=== PATIENT | male | born 1960 | race Caucasian/White ===

== ENCOUNTER 2018-05-29 07:26 | Day surgery (SDC) | payer OTHER ==
[~2018-05-29] VITALS: Ht 172.7 cm; Wt 108.7 kg
[2018-05-29] VITALS (9 sets, daily range): BP systolic 105–131; BP diastolic 66–102
[~2018-05-29 07:26] MED LIST: LORA0.5T PO
[2018-05-29] MEDS ORDERED: diphenhydrAMINE 25mg capsule PO PRN (08:00)
[2018-05-29] MEDS ORDERED: sod bicarbonate 150mEq in D5W 1,150 ML IV ONE (08:00)
[2018-05-29] MEDS ORDERED: POTA-82 PO (08:03)
[2018-05-29] MEDS ORDERED: GABA100C PO (08:03)
[2018-05-29] MEDS ORDERED: METH10TA4 PO (08:03)
[2018-05-29] MEDS ORDERED: CARV25TA PO (08:03)
[2018-05-29] MEDS ORDERED: TADA10TA PO (08:03)
[2018-05-29] MEDS ORDERED: FURO-149 PO (08:03)
[2018-05-29] MEDS ORDERED: TESTOSTERONE CREAM TOP (08:03)
[2018-05-29 08:17] LABS: BASOPHILS % (AUTO) 0.4 % (0-1); EOSINOPHILS # (AUTO) 0.1 X10'3 (0-0.9); EOSINOPHILS % (AUTO) 2.7 % (0-6); HEMATOCRIT 50.1 % (42.0-52.0); HEMOGLOBIN 16.3 g/dl (14.0-17.9); LYMPHOCYTES # (AUTO) 1.3 X10'3 (1.1-4.8); LYMPHOCYTES % (AUTO) 23.6 % (21-51); MEAN CORPUSCULAR HEMOGLOBIN 31.2 PG (27.0-31.0); MEAN CORPUSCULAR HGB CONC 32.6 g/dL (33.0-36.5); MEAN CORPUSCULAR VOLUME 95.8 FL (78-98); MEAN PLATELET VOLUME 8.8 FL (7.4-10.4); MONOCYTES # (AUTO) 0.2 X10'3 (0-0.9); MONOCYTES % (AUTO) 3.8 % (2-12); NEUTROPHILS # (AUTO) 3.8 X10'3 (1.8-7.7); NEUTROPHILS % (AUTO) 69.5 % (42-75); PLATELET COUNT 163 X10'3 (140-440); RED BLOOD COUNT 5.23 X10'6 (4.70-6.10); RED CELL DISTRIBUTION WIDTH 14.6 % (11.5-14.5); WHITE BLOOD COUNT 5.4 X10'3 (4.5-11.0)
[2018-05-29 08:26] LABS: ANION GAP 10 (8-16); BLOOD UREA NITROGEN 23 MG/DL (7-18); CALCIUM 8.9 MG/DL (8.5-10.1); CHLORIDE 105 MMOL/L (99-107); GLUCOSE 94 MG/DL (70-104); MAGNESIUM 2.1 MG/DL (1.5-2.4); POTASSIUM 3.9 MMOL/L (3.5-5.1); SODIUM 143 MMOL/L (135-145); TOTAL CARBON DIOXIDE 27.6 MMOL/L (24-32); eGFR 77 ML/MIN
[2018-05-29] MEDS ORDERED: FLU VACC QUAD 2018(5 YR UP)/PF 60 MCG/0.5 ML SYRINGE IM ONE (09:00)
[2018-05-29 09:01] LABS: INR 1.1 INR; PROTHROMBIN TIME 11.2 SECONDS (9.0-12.0)
[2018-05-29] MEDS ORDERED: midazolam 2 mg/2 ml injection ONE (10:03)
[2018-05-29] MEDS ORDERED: iohexol 350 MG/ML 50ML vial IV ONE (10:04)
[2018-05-29] MEDS ORDERED: fentaNYL/PF 50MCG/1 ML 2ML syringe ONE (10:04)
[2018-05-29] MEDS ORDERED: iohexol 350MG/ML 100ml bottle IV ONE (10:04)
[2018-05-29] MEDS ORDERED: LIDOcaine 1% (10mg/ml)w/preservative injection 20ml MDV ONE (10:04)
[2018-05-29] MEDS ORDERED: furosemide 40mg/4ml inj ONE (10:54)
--- NOTE | 2018-05-29 13:31 | NUR ---
Dr. Landrum wanted patient to go home on a dobutamine gtt this afternoon, case management stated nothing was open and they could not get an infusion nurse to set it up, Dr. landrum was notified that it could not be done today, discharge is still pending at 1500 today, Dr. landrum stated to have him follow up with his office this week and they will set him up with a dobutamine drip. Telephone orders verified.
[2018-05-29] MEDS ORDERED: gabapentin 100mg capsule PO SCH (16:00)
[2018-05-29] MEDS ORDERED: furosemide 40mg tablet PO SCH (20:00)
[2018-05-29] MEDS ORDERED: methylphenidate 5mg tablet PO SCH (20:00)
[2018-05-29] MEDS ORDERED: lisinopril 2.5mg tablet PO SCH (20:00)
[2018-05-29] MEDS ORDERED: carVEDilol 12.5mg tablet PO SCH (20:00)
[2018-05-29] MEDS ORDERED: potassium Cl 20 mEq SR tablet PO SCH (20:00)
== END 2018-05-29 15:00 | disposition home or self-care (01) ==
LOC: SSTAY O 07:26
PROVIDERS: ATTEND Internal Medicine Cardiovascular Disease
DX: I25.10 Atherosclerotic heart disease of native coronary artery without angina pectoris (principal); I42.0 Dilated cardiomyopathy; I10 Essential (primary) hypertension; Z79.899 Other long term (current) drug therapy; Z98.890 Other specified postprocedural states; Z88.8 Allergy status to other drugs, medicaments and biological substances
CPT/HCPCS: 36415; 80048; 83735; 85025; 85610; 93005; 93458; 99152; A6257; J1644; J1940; J2250; J3010; Q0163; Q2037; Q9967; A4620; C1760; C1769; C1894; J2001

== ENCOUNTER → 2018-05-31 | Day surgery (SDC) | payer OTHER ==
[~2018-05-31] MED LIST changes: +CAPT12.53 PO; +CARV-50 PO; +CARV25TA PO; +FURO-149 PO; +FURO40TA4 PO; +GABA100C PO; -LORA0.5T PO; +METH10TA4 PO; +POTA-82 PO; +POTA20PA40 PO; +TADA10TA PO; +TESTOSTERONE CREAM TOP
== END | disposition home or self-care (01) ==
LOC: SSTAY O 10:58
PROVIDERS: ATTEND Internal Medicine Cardiovascular Disease
PROC: 05HY33Z Insertion of Infusion Device into Upper Vein, Percutaneous Approach (ICD-10-PCS; principal; 2018-05-31)
DX: I50.9 Heart failure, unspecified (principal); I42.9 Cardiomyopathy, unspecified
CPT/HCPCS: 36573; 76937

== ENCOUNTER 2018-06-09 09:32 | Day surgery (SDC) | payer OTHER ==
[~2018-06-09 09:32] MED LIST changes: -CAPT12.53 PO; -CARV-50 PO; -FURO40TA4 PO; -POTA20PA40 PO
[2018-06-09] MEDS ORDERED: normal saline 1000ml 1,000 ML IV SCH ×2 (09:55→12:50)
[2018-06-09] MEDS ORDERED: diphenhydrAMINE 25mg capsule PO PRN (10:10)
[2018-06-09] MEDS ORDERED: sod bicarbonate 150mEq in D5W 1,150 ML IV ONE (10:10)
[2018-06-09] MEDS ORDERED: POTA20PA40 PO (10:24)
[2018-06-09] MEDS ORDERED: FURO40TA4 PO (10:24)
[2018-06-09] MEDS ORDERED: CARV-50 PO (10:24)
[2018-06-09] MEDS ORDERED: CAPT12.53 PO (10:24)
[2018-06-09] MEDS ORDERED: lidocaine 1%/epinephrine 1:100,000 injection 50ml vial ONE (10:39)
[2018-06-09] MEDS ORDERED: fentaNYL/PF 50MCG/1 ML 2ML syringe ONE ×2 (10:39→11:26)
[2018-06-09] MEDS ORDERED: midazolam 2 mg/2 ml injection ONE ×4 (10:39→11:50)
[2018-06-09] MEDS ORDERED: vancomycin/NS 1 GM ADD-VANTAGE 250 ML IV ONE (10:45)
[2018-06-09] MEDS ORDERED: cefazolin/dext.iso 2gm/50ml 50 ML IV ONE (10:58)
[2018-06-09 11:08] LABS: BASOPHILS % (AUTO) 0.9 % (0-1); EOSINOPHILS # (AUTO) 0.2 X10'3 (0-0.9); EOSINOPHILS % (AUTO) 2.8 % (0-6); HEMATOCRIT 52.2 % (42.0-52.0); HEMOGLOBIN 17.3 g/dl (14.0-17.9); LYMPHOCYTES # (AUTO) 1.4 X10'3 (1.1-4.8); LYMPHOCYTES % (AUTO) 24.8 % (21-51); MEAN CORPUSCULAR HEMOGLOBIN 30.9 PG (27.0-31.0); MEAN CORPUSCULAR HGB CONC 33.2 g/dL (33.0-36.5); MEAN CORPUSCULAR VOLUME 93.1 FL (78-98); MEAN PLATELET VOLUME 7.9 FL (7.4-10.4); MONOCYTES # (AUTO) 0.4 X10'3 (0-0.9); MONOCYTES % (AUTO) 7.7 % (2-12); NEUTROPHILS # (AUTO) 3.5 X10'3 (1.8-7.7); NEUTROPHILS % (AUTO) 63.8 % (42-75); PLATELET COUNT 179 X10'3 (140-440); RED CELL DISTRIBUTION WIDTH 14.3 % (11.5-14.5); WHITE BLOOD COUNT 5.5 X10'3 (4.5-11.0)
[2018-06-09 11:13] VITALS: BP 107/84
[2018-06-09 11:14] LABS: PROTHROMBIN TIME 10.5 SECONDS (9.0-12.0)
[2018-06-09 11:15] LABS: ALBUMIN 3.8 G/DL (3.4-5.0); ANION GAP 6 (8-16); BLOOD UREA NITROGEN 24 MG/DL (7-18); CALCIUM 8.9 MG/DL (8.5-10.1); CHLORIDE 102 MMOL/L (99-107); CREATININE 0.96 MG/DL (0.60-1.10); GLUCOSE 98 MG/DL (70-104); SODIUM 136 MMOL/L (135-145); TOTAL CARBON DIOXIDE 28.4 MMOL/L (24-32); eGFR 81 ML/MIN
[2018-06-09 11:16] LABS: POTASSIUM 5.1 MMOL/L (3.5-5.1)
[2018-06-09] MEDS ORDERED: vancomycin 1,000mg inj ONE (11:45)
[2018-06-09 12:24] VITALS: BP 150/73
[2018-06-09 12:45] VITALS: BP 148/77
[2018-06-09 13:00] VITALS: BP 124/80
[2018-06-09 13:15] VITALS: BP 117/79
== END 2018-06-09 14:27 | disposition home or self-care (01) ==
LOC: SSTAY O 09:32
PROVIDERS: ATTEND Internal Medicine Cardiovascular Disease
DX: I42.0 Dilated cardiomyopathy (principal); I10 Essential (primary) hypertension; Z98.890 Other specified postprocedural states; Z72.89 Other problems related to lifestyle; Z79.899 Other long term (current) drug therapy
CPT/HCPCS: 33249; 36415; 71046; 80048; 83735; 85025; 85610; 99152; 99153; C1722; C1777; J0690; J2250; J3010; J3370; J3490; J7030; A4565; A4620; C1894

== ENCOUNTER 2018-07-06 08:14 | Day surgery (SDC) | payer OTHER ==
[~2018-07-06] VITALS: Ht 172.7 cm; Wt 104.1 kg
[~2018-07-06 08:14] MED LIST changes: +CAPT12.53 PO; +CARV-50 PO; -CARV25TA PO; -FURO-149 PO; +FURO40TA4 PO; -POTA-82 PO; +POTA20PA40 PO; -TADA10TA PO; -TESTOSTERONE CREAM TOP
[2018-07-06] MEDS ORDERED: normal saline 1000ml 1,000 ML IV SCH ×2 (09:20→10:22)
[2018-07-06 09:24] LABS: BASOPHILS % (AUTO) 0.9 % (0-1); EOSINOPHILS # (AUTO) 0.2 X10'3 (0-0.9); EOSINOPHILS % (AUTO) 3.5 % (0-6); HEMATOCRIT 45.9 % (42.0-52.0); HEMOGLOBIN 15.4 g/dl (14.0-17.9); LYMPHOCYTES # (AUTO) 1.4 X10'3 (1.1-4.8); LYMPHOCYTES % (AUTO) 26.1 % (21-51); MEAN CORPUSCULAR HEMOGLOBIN 30.1 PG (27.0-31.0); MEAN CORPUSCULAR HGB CONC 33.5 g/dL (33.0-36.5); MEAN CORPUSCULAR VOLUME 89.9 FL (78-98); MEAN PLATELET VOLUME 7.7 FL (7.4-10.4); MONOCYTES # (AUTO) 0.4 X10'3 (0-0.9); NEUTROPHILS # (AUTO) 3.2 X10'3 (1.8-7.7); NEUTROPHILS % (AUTO) 61.5 % (42-75); PLATELET COUNT 160 X10'3 (140-440); RED CELL DISTRIBUTION WIDTH 13.2 % (11.5-14.5); WHITE BLOOD COUNT 5.2 X10'3 (4.5-11.0)
[2018-07-06 09:32] LABS: ALBUMIN 3.5 G/DL (3.4-5.0); ANION GAP 8 (8-16); BLOOD UREA NITROGEN 18 MG/DL (7-18); BUN/CREATININE RATIO 20.7 (5.4-32.0); CALCIUM 8.8 MG/DL (8.5-10.1); CHLORIDE 104 MMOL/L (99-107); CREATININE 0.87 MG/DL (0.60-1.10); GLUCOSE 93 MG/DL (70-104); POTASSIUM 4.4 MMOL/L (3.5-5.1); SODIUM 140 MMOL/L (135-145); eGFR 90 ML/MIN
[2018-07-06 09:51] VITALS: BP 96/64
[2018-07-06] MEDS ORDERED: heparin 1,000 units/ml 10ml inj ICATH ONE ×2 (10:25→10:50)
[2018-07-06] MEDS ORDERED: fentaNYL/PF 50MCG/1 ML 2ML syringe IV PRN (10:25)
[2018-07-06] MEDS ORDERED: midazolam 2 mg/2 ml injection IV PRN (10:25)
[2018-07-06] MEDS ORDERED: LIDOcaine 1%/PF 5ML 10 MG/ML VIAL SQ ONE (10:25)
[2018-07-06] MEDS ORDERED: midazolam 2 mg/2 ml injection ONE (10:50)
[2018-07-06] MEDS ORDERED: fentaNYL/PF 50MCG/1 ML 2ML syringe ONE (10:51)
[2018-07-06] MEDS ORDERED: LIDOcaine 1%/PF 5ML 10 MG/ML VIAL ONE (10:52)
[2018-07-06 11:49] VITALS: BP 116/91
[2018-07-06 12:00] VITALS: BP 110/89
[2018-07-06 12:15] VITALS: BP 109/74
[2018-07-06 13:40] VITALS: BP 116/91
== END 2018-07-06 12:55 | disposition home or self-care (01) ==
LOC: SSTAY O 08:14
PROVIDERS: ATTEND Radiology Diagnostic Radiology
DX: I42.0 Dilated cardiomyopathy (principal); I10 Essential (primary) hypertension; Z79.899 Other long term (current) drug therapy; Z98.890 Other specified postprocedural states; Z88.8 Allergy status to other drugs, medicaments and biological substances
CPT/HCPCS: 36415; 36558; 76937; 77001; 80048; 85025; J2001; J2250; J3010; J7030; 99152; 99153; A9270; C1751; C1894; J1644

== ENCOUNTER 2018-10-18 08:45 | Emergency (ER) | payer OTHER ==
[~2018-10-18] VITALS: Ht 175.3 cm; Wt 99.1 kg
--- NOTE | 2018-10-18 09:22 | NUR ---
picc nurse advises that she will be able to come down in 30-45 minutes.
[2018-10-18 11:31] VITALS: BP 106/69
== END 2018-10-18 12:10 | disposition home or self-care (01) ==
LOC: ER 08:45
DX: T82.514A Breakdown (mechanical) of infusion catheter, initial encounter (principal); T82.534A Leakage of infusion catheter, initial encounter; Z79.899 Other long term (current) drug therapy; Y83.8 Other surgical procedures as the cause of abnormal reaction of the patient, or of later complication, without mention of misadventure at the time of the procedure; Y92.89 Other specified places as the place of occurrence of the external cause
CPT/HCPCS: 99285

== ENCOUNTER 2018-10-19 07:05 | Emergency (ER) | payer OTHER ==
[~2018-10-19] VITALS: Ht 175.3 cm; Wt 102.0 kg
--- NOTE | 2018-10-19 08:06 | NUR ---
patient reconnected to his heart medication pump, per dr Yuan
[2018-10-19 10:25] VITALS: BP 106/75
--- NOTE | 2018-10-19 10:28 | NUR ---
reported off to Ziggy QIU, taking over
== END 2018-10-19 11:34 | disposition home or self-care (01) ==
LOC: ER 07:06
DX: T82.898A Other specified complication of vascular prosthetic devices, implants and grafts, initial encounter (principal); Y92.89 Other specified places as the place of occurrence of the external cause
CPT/HCPCS: 99283

== ENCOUNTER 2019-02-05 12:00 | Inpatient (IN) | payer OTHER ==
[2019-02-05] VITALS (8 sets, daily range): BP systolic 60–94; BP diastolic 28–60
[~2019-02-05] VITALS: Ht 172.7 cm; Wt 101.0 kg
--- NOTE | 2019-02-05 12:15 | NUR ---
pt bib ems for weakness ,lightheadness low bp .dr quinonez aware of pt condtion as per barbara kaur.
--- NOTE | 2019-02-05 12:39 | NUR ---
pt pacemaker interogation done waiting for fax.celso rodrigez came by to see the pt , at bedside,pt stef any cp or sob.[t co generalized weakness and tirdness.pt bp 64/41.
[2019-02-05 12:43] LABS: BASOPHILS % (AUTO) 0.2 % (0-1); EOSINOPHILS # (AUTO) 0.1 X10'3 (0-0.9); EOSINOPHILS % (AUTO) 0.8 % (0-6); HEMATOCRIT 46.3 % (42.0-52.0); HEMOGLOBIN 16.2 g/dl (14.0-17.9); LYMPHOCYTES # (AUTO) 1.4 X10'3 (1.1-4.8); LYMPHOCYTES % (AUTO) 14.8 % (21-51); MEAN CORPUSCULAR HEMOGLOBIN 31.7 PG (27.0-31.0); MEAN CORPUSCULAR VOLUME 90.7 FL (78-98); MEAN PLATELET VOLUME 7.6 FL (7.4-10.4); MONOCYTES # (AUTO) 0.6 X10'3 (0-0.9); MONOCYTES % (AUTO) 5.9 % (2-12); NEUTROPHILS # (AUTO) 7.4 X10'3 (1.8-7.7); NEUTROPHILS % (AUTO) 78.3 % (42-75); PLATELET COUNT 224 X10'3 (140-440); RED CELL DISTRIBUTION WIDTH 12.6 % (11.5-14.5); WHITE BLOOD COUNT 9.4 X10'3 (4.5-11.0)
--- NOTE | 2019-02-05 12:49 | NUR ---
pt stated that he has not slept since ,pt has lost weight as pt was on diuretic.pt light lights turn low danielle that pt can relax.
--- NOTE | 2019-02-05 12:56 | NUR ---
ASSISGNED NURSE BACK FROM LUNCH BREAK ,REPORT GIVEN.
[2019-02-05 12:57] LABS: PARTIAL THROMBOPLASTIN TIME 28 SECONDS (22-32)
[2019-02-05 12:59] LABS: ALANINE AMINOTRANSFERASE 20 U/L (12-78); ALBUMIN 4.2 G/DL (3.4-5.0); ALBUMIN/GLOBULIN RATIO 1.1 (1.1-1.5); ALKALINE PHOSPHATASE 83 IU/L (46-116); ANION GAP 12 (8-16); ASPARTATE AMINO TRANSFERASE 16 U/L (10-37); BLOOD UREA NITROGEN 79 MG/DL (7-18); CALCIUM 9.9 MG/DL (8.5-10.1); CHLORIDE 86 MMOL/L (99-107); CREATININE 2.55 MG/DL (0.60-1.10); GLUCOSE 141 MG/DL (70-104); POTASSIUM 3.2 MMOL/L (3.5-5.1); SODIUM 129 MMOL/L (135-145); TOTAL CARBON DIOXIDE 31.5 MMOL/L (24-32); TOTAL PROTEIN 7.9 G/DL (6.4-8.2); eGFR 26 ML/MIN
[2019-02-05] MEDS ORDERED: ondansetron 4mg rapidly disintigrating tab PO ONE (13:15)
[2019-02-05] MEDS ORDERED: normal saline 1000ML IV soln IVB ONE (14:15)
[2019-02-05] MEDS ORDERED: ZAR2.5T PO (15:08)
[2019-02-05] MEDS ORDERED: CARV6.253 PO (15:20)
[2019-02-05] MEDS ORDERED: SACU1TAB PO (15:20)
[2019-02-05] MEDS ORDERED: SPIR25TA5 PO (15:20)
[2019-02-05] MEDS ORDERED: BUME2TAB7 PO (15:20)
[2019-02-05] MEDS ORDERED: sodium phosphate inj. 30 MMOL in dextrose 5%-water 250 ML IV PRN (15:40)
[2019-02-05] MEDS ORDERED: morphine 4 MG/ML inj SYRINge IV PRN (15:40)
[2019-02-05] MEDS ORDERED: magnesium 2GM in 50ml NS 50 ML IV PRN (15:40)
[2019-02-05] MEDS ORDERED: magnesium 4gm in 100ml NS 100 ML IV PRN (15:40)
[2019-02-05] MEDS ORDERED: magnesium Cl slow-release 64mg tablet PO PRN (15:40)
[2019-02-05] MEDS ORDERED: Neutra Phos packet PO PRN (15:40)
[2019-02-05] MEDS ORDERED: sodium phosphate inj. 15 MMOL in dextrose 5%-water 150 ML IV PRN (15:40)
[2019-02-05] MEDS ORDERED: morphine 2 MG/ML inj. syringe IV PRN (15:40)
[2019-02-05] MEDS ORDERED: acetaminophen 325mg tablet PO PRN (15:40)
[2019-02-05] MEDS ORDERED: bisacodyl 10mg suppository rectal RC PRN (15:40)
[2019-02-05] MEDS: normal saline 1000ml 1,000 ML IV SCH (16:19)
[2019-02-05] MEDS: midodrine tablet 2.5 MG TABLET PO SCH ×2 (16:20→23:51)
[2019-02-05] MEDS: heparin, porcine 5000 units/ml vial SQ SCH (16:20)
[2019-02-05] MEDS: milrinone (Primacor) 20mg/D5W 100 ML IV SCH ×2 (16:34→20:53)
[2019-02-05] MEDS: acetaminophen 325mg tablet PO PRN (16:38)
--- NOTE | 2019-02-05 19:25 | NUR ---
DISTAL END OF [facility] GROSHONG TUBING APPEARS TO HAVE SMALL LEAK AND PER PATIENT HAS ALREADY BEEN REPAIRED ONCE. MILRINONE GTT CHANGED TO RIGHT HAND PIV ABIGAIL RN AWARE. [facility] CALLED PER 'S REQUEST PATIENT'S INFUSIONS COME FROM [facility] AND RN FROM [facility] REPAIRED LINE ONCE ALREADY: NO ANSWER, NO MESSAGE LEFT. INFORMED
--- NOTE | 2019-02-05 19:31 | NUR ---
PT HAS GROSHONG LINE IN RT CHEST WITH PRIMACOR RUNNING, GROSHONG LINE STARTED LEAKING ABOVE THE IV TUBING CONNECTION. PRIMACOR CHANGED TO 18G PIV IN RT HAND TEMPORARILY. NOTIFIED ANKIT TERRELL.
[2019-02-05] MEDS: docusate sod 100mg capsule PO SCH (20:00)
--- NOTE | 2019-02-05 20:20 | NUR ---
I received pt via gurney from ER, pt is alert oriented, placed on monitor, assessment complete, sbp 62 call placed to Alberto PHAM 200ml of 5% albumin ordered and given with little increase in bp, spoke to Alberto PHAM again orders to give 500 ml ns bolus ordered and administrated. sbp remains in the 60 spoke to alberto Balderas Midodrine 5mg now ordered and administered sbp greater then 80. new orders received to not titrate the primacor, and sbp ok in the 80's as long as pt is not symptomatic for hypotension
[2019-02-05] MEDS ORDERED: albumin (human) 25% 100 ML IV solution IV ONE (20:40)
[2019-02-05] MEDS ORDERED: albumin (human) 25% 100ml IV 200 ML IV ONE (20:42)
[2019-02-05] MEDS ORDERED: midodrine tablet 2.5 MG TABLET PO STA (21:02)
[2019-02-05] MEDS: famotidine 20mg tablet PO SCH (23:51)
[2019-02-06] VITALS (18 sets, daily range): BP systolic 82–169; BP diastolic 43–94
[2019-02-06 04:46] LABS: ALANINE AMINOTRANSFERASE 17 U/L (12-78); ALBUMIN 4.2 G/DL (3.4-5.0); ALBUMIN/GLOBULIN RATIO 1.6 (1.1-1.5); ALKALINE PHOSPHATASE 63 IU/L (46-116); ANION GAP 10 (8-16); ASPARTATE AMINO TRANSFERASE 14 U/L (10-37); BILIRUBIN,TOTAL 1.2 MG/DL (0.1-1.0); BLOOD UREA NITROGEN 81 MG/DL (7-18); CHLORIDE 90 MMOL/L (99-107); CREATININE 2.61 MG/DL (0.60-1.10); GLUCOSE 101 MG/DL (70-104); MAGNESIUM 2.5 MG/DL (1.5-2.4); PHOSPHORUS 5.7 MG/DL (2.3-4.5); SODIUM 129 MMOL/L (135-145); TOTAL CARBON DIOXIDE 28.6 MMOL/L (24-32); TOTAL PROTEIN 6.9 G/DL (6.4-8.2); TROPONIN I < 0.04 NG/ML (0.0-0.05); eGFR 25 ML/MIN
[2019-02-06 04:48] LABS: BASOPHILS % (AUTO) 0.2 % (0-1); EOSINOPHILS # (AUTO) 0.1 X10'3 (0-0.9); EOSINOPHILS % (AUTO) 1.4 % (0-6); HEMATOCRIT 37.6 % (42.0-52.0); HEMOGLOBIN 13.4 g/dl (14.0-17.9); LYMPHOCYTES # (AUTO) 1.5 X10'3 (1.1-4.8); MEAN CORPUSCULAR HEMOGLOBIN 32.1 PG (27.0-31.0); MEAN CORPUSCULAR HGB CONC 35.5 g/dL (33.0-36.5); MEAN CORPUSCULAR VOLUME 90.4 FL (78-98); MEAN PLATELET VOLUME 7.7 FL (7.4-10.4); MONOCYTES # (AUTO) 0.5 X10'3 (0-0.9); MONOCYTES % (AUTO) 7.8 % (2-12); NEUTROPHILS # (AUTO) 4.7 X10'3 (1.8-7.7); NEUTROPHILS % (AUTO) 68.6 % (42-75); PLATELET COUNT 169 X10'3 (140-440); RED BLOOD COUNT 4.16 X10'6 (4.70-6.10); RED CELL DISTRIBUTION WIDTH 12.7 % (11.5-14.5); WHITE BLOOD COUNT 6.8 X10'3 (4.5-11.0)
[2019-02-06 04:50] LABS: POTASSIUM 2.8 MMOL/L (3.5-5.1)
[2019-02-06] MEDS: normal saline 1000ml 1,000 ML IV SCH (04:57)
[2019-02-06] MEDS: potassium Cl 20 mEq SR tablet PO PRN ×5 (05:05→20:45)
--- NOTE | 2019-02-06 06:22 | NUR ---
report given to rec rn plan of care reviewed
[2019-02-06] MEDS: milrinone (Primacor) 20mg/D5W 100 ML IV SCH ×3 (06:50→16:53)
[2019-02-06] MEDS: acetaminophen 325mg tablet PO PRN (06:52)
[2019-02-06] MEDS: famotidine 20mg tablet PO SCH ×2 (07:23→20:44)
[2019-02-06] MEDS: midodrine tablet 2.5 MG TABLET PO SCH ×2 (07:23→15:32)
[2019-02-06] MEDS: heparin, porcine 5000 units/ml vial SQ SCH ×3 (07:24→15:31)
[2019-02-06] MEDS: docusate sod 100mg capsule PO SCH ×2 (07:43→20:44)
[2019-02-06] MEDS: ondansetron/PF 4mg/2ml inj IV PRN (09:38)
[2019-02-06] MEDS: HYDROcodone/acetaminophen 10/325mg tab PO PRN (11:23)
--- NOTE | 2019-02-06 13:11 | NUR ---
Patient transferred to ACCE unit bed 307 with all belongings, including red cell phone. Report called to RN. Transferred via w/c with [facility]VTel running to [facility]. Potassium replacement completed prior to transfer. Recheck lab ordered for 1530
--- NOTE | 2019-02-06 18:16 | NUR ---
Problems reprioritized. Patient report given, questions answered & plan of care reviewed with LAZARUS Friedman.
[2019-02-06] MEDS: lactobacillus rhamnosus 10,000 MMU CELLS/CAPSULE PO SCH (20:44)
[2019-02-07] MEDS: midodrine tablet 2.5 MG TABLET PO SCH ×2 (00:46→09:14)
[2019-02-07] MEDS: heparin, porcine 5000 units/ml vial SQ SCH ×2 (00:46→09:13)
[2019-02-07] MEDS: milrinone (Primacor) 20mg/D5W 100 ML IV SCH ×2 (00:57→09:19)
[2019-02-07 02:00] VITALS: BP 143/67
[2019-02-07 02:36] LABS: BASOPHILS % (AUTO) 0.4 % (0-1); EOSINOPHILS # (AUTO) 0.3 X10'3 (0-0.9); EOSINOPHILS % (AUTO) 5.4 % (0-6); HEMATOCRIT 41.5 % (42.0-52.0); HEMOGLOBIN 14.5 g/dl (14.0-17.9); LYMPHOCYTES # (AUTO) 1.9 X10'3 (1.1-4.8); LYMPHOCYTES % (AUTO) 31.9 % (21-51); MEAN CORPUSCULAR VOLUME 91.4 FL (78-98); MEAN PLATELET VOLUME 7.7 FL (7.4-10.4); MONOCYTES # (AUTO) 0.5 X10'3 (0-0.9); NEUTROPHILS # (AUTO) 3.3 X10'3 (1.8-7.7); NEUTROPHILS % (AUTO) 54.3 % (42-75); PLATELET COUNT 177 X10'3 (140-440); RED BLOOD COUNT 4.54 X10'6 (4.70-6.10); RED CELL DISTRIBUTION WIDTH 12.7 % (11.5-14.5)
[2019-02-07 02:41] LABS: ALANINE AMINOTRANSFERASE 20 U/L (12-78); ALBUMIN/GLOBULIN RATIO 1.2 (1.1-1.5); ALKALINE PHOSPHATASE 70 IU/L (46-116); ANION GAP 7 (8-16); ASPARTATE AMINO TRANSFERASE 17 U/L (10-37); BILIRUBIN,TOTAL 0.9 MG/DL (0.1-1.0); BLOOD UREA NITROGEN 57 MG/DL (7-18); BUN/CREATININE RATIO 37.5 (5.4-32.0); CALCIUM 8.7 MG/DL (8.5-10.1); CHLORIDE 96 MMOL/L (99-107); CREATININE 1.52 MG/DL (0.60-1.10); GLUCOSE 92 MG/DL (70-104); MAGNESIUM 2.4 MG/DL (1.5-2.4); POTASSIUM 3.6 MMOL/L (3.5-5.1); SODIUM 132 MMOL/L (135-145); TOTAL CARBON DIOXIDE 28.7 MMOL/L (24-32); TOTAL PROTEIN 7.3 G/DL (6.4-8.2); eGFR 48 ML/MIN
[2019-02-07] MEDS: HYDROcodone/acetaminophen 10/325mg tab PO PRN (05:28)
[2019-02-07 06:00] VITALS: BP 113/80
[2019-02-07] MEDS: ondansetron/PF 4mg/2ml inj IV PRN (09:12)
[2019-02-07] MEDS: lactobacillus rhamnosus 10,000 MMU CELLS/CAPSULE PO SCH (09:13)
[2019-02-07] MEDS: famotidine 20mg tablet PO SCH (09:13)
[2019-02-07] MEDS: docusate sod 100mg capsule PO SCH (09:14)
[2019-02-07 11:00] VITALS: BP 107/78
--- NOTE | 2019-02-07 13:00 | NUR ---
Student documentation: I have reviewed and agree with all interventions, assessments performed and documented by MARISOL Westbrook.
--- NOTE | 2019-02-07 14:30 | NUR ---
pt. discharged from facility at 1402. pt. was wheeled down to private vehicle by staff accompanied by . pt. signed and understood all paperwork. pt. IV was d/c intact. pt. had no new meds to call in. pt. left with all belongings.
[2019-02-08] MEDS ORDERED: VANCOMYCIN LEVEL IV ONE (21:30)
== END 2019-02-07 14:05 | disposition home or self-care (01) | DRG 314 ==
LOC: ER 12:00 → ED HOLD 15:36 → CMPBEDREQ 19:44 → ICU 2S 20:58 → MED 3N 02-06 14:50
PROVIDERS: ADMIT Internal Medicine Critical Care Medicine; ATTEND Internal Medicine Critical Care Medicine
PROC: 0JWT3XZ Revision of Tunneled Vascular Access Device in Trunk Subcutaneous Tissue and Fascia, Percutaneous Approach (ICD-10-PCS; principal; 2019-02-06)
DX: T82.514A Breakdown (mechanical) of infusion catheter, initial encounter (principal); R57.0 Cardiogenic shock; I42.0 Dilated cardiomyopathy; N17.9 Acute kidney failure, unspecified; I13.0 Hypertensive heart and chronic kidney disease with heart failure and stage 1 through stage 4 chronic kidney disease, or unspecified chronic kidney disease; E87.3 Alkalosis; E86.0 Dehydration; N18.9 Chronic kidney disease, unspecified; I50.9 Heart failure, unspecified; Z79.899 Other long term (current) drug therapy; Y92.89 Other specified places as the place of occurrence of the external cause
CPT/HCPCS: 36415; 71045; 80053; 83605; 83735; 84100; 84132; 84145; 84443; 84484; 85025; 85610; 85730; 87040; 87081; 93005; 96360; 97161; 97530; 99285; G0378; J1644; J2260; J2405; J3370; P9047

== ENCOUNTER 2019-03-09 15:17 | Emergency (ER) | payer OTHER ==
[~2019-03-09] VITALS: Ht 175.3 cm; Wt 105.5 kg
[~2019-03-09 15:17] MED LIST changes: +BUME2TAB7 PO; -CAPT12.53 PO; -CARV-50 PO; +CARV6.253 PO; -FURO40TA4 PO; -GABA100C PO; -METH10TA4 PO; +SACU1TAB PO; +SPIR25TA5 PO
[2019-03-09 16:08] LABS: BASOPHILS % (AUTO) 0.5 % (0-1); EOSINOPHILS % (AUTO) 0.7 % (0-6); HEMATOCRIT 42.1 % (42.0-52.0); HEMOGLOBIN 14.7 g/dl (14.0-17.9); LYMPHOCYTES # (AUTO) 1.5 X10'3 (1.1-4.8); LYMPHOCYTES % (AUTO) 22.1 % (21-51); MEAN CORPUSCULAR HEMOGLOBIN 32.4 PG (27.0-31.0); MEAN CORPUSCULAR HGB CONC 34.9 g/dL (33.0-36.5); MEAN CORPUSCULAR VOLUME 92.7 FL (78-98); MEAN PLATELET VOLUME 7.2 FL (7.4-10.4); MONOCYTES # (AUTO) 0.3 X10'3 (0-0.9); NEUTROPHILS # (AUTO) 4.7 X10'3 (1.8-7.7); NEUTROPHILS % (AUTO) 71.7 % (42-75); PLATELET COUNT 209 X10'3 (140-440); RED BLOOD COUNT 4.54 X10'6 (4.70-6.10); RED CELL DISTRIBUTION WIDTH 13.2 % (11.5-14.5); WHITE BLOOD COUNT 6.6 X10'3 (4.5-11.0)
[2019-03-09 16:25] LABS: ALANINE AMINOTRANSFERASE 26 U/L (12-78); ALBUMIN 4.3 G/DL (3.4-5.0); ALBUMIN/GLOBULIN RATIO 1.2 (1.1-1.5); ALKALINE PHOSPHATASE 78 IU/L (46-116); ANION GAP 10 (8-16); ASPARTATE AMINO TRANSFERASE 21 U/L (10-37); BILIRUBIN,TOTAL 0.4 MG/DL (0.1-1.0); BLOOD UREA NITROGEN 26 MG/DL (7-18); BUN/CREATININE RATIO 20.3 (5.4-32.0); CHLORIDE 98 MMOL/L (99-107); CREATININE 1.28 MG/DL (0.60-1.10); GLUCOSE 97 MG/DL (70-104); POTASSIUM 3.4 MMOL/L (3.5-5.1); SODIUM 139 MMOL/L (135-145); TOTAL CARBON DIOXIDE 30.6 MMOL/L (24-32); TOTAL PROTEIN 7.8 G/DL (6.4-8.2); eGFR 58 ML/MIN
[2019-03-09 19:40] VITALS: BP 114/69
== END 2019-03-09 19:42 | disposition home or self-care (01) ==
LOC: ER 15:18
DX: R07.89 Other chest pain (principal); N18.9 Chronic kidney disease, unspecified; Z79.899 Other long term (current) drug therapy
CPT/HCPCS: 36415; 71045; 80053; 84484; 85025; 93005; 99284

== ENCOUNTER 2019-04-10 11:05 | Day surgery (SDC) | payer OTHER ==
[~2019-04-10] VITALS: Ht 175.3 cm; Wt 110.6 kg
[2019-04-10] MEDS ORDERED: LIDOcaine 1% 30ml preserv. free vial SQ STA (11:24)
[2019-04-10 11:30] VITALS: BP 109/71
--- NOTE | 2019-04-10 12:00 | NUR ---
Pt states he is here for a 7-9 day picc line needed for milrinone infusion due to infected groshong catheter. Contacted [facility] pharmacist Chris to confirm medication is ok to give via midline per their policy, he states he is comfortable with medication going through midline. Discussed with Dr. Erlin Rivera the information and he states ok to place midline for temporary infusion instead of PICC line. DAYNA QIU
[2019-04-10] MEDS ORDERED: DOBU250I2 IV (12:05)
[2019-04-10 12:10] LABS: BASOPHILS % (AUTO) 0.6 % (0-1); EOSINOPHILS # (AUTO) 0.3 X10'3 (0-0.9); EOSINOPHILS % (AUTO) 4.9 % (0-6); HEMATOCRIT 40.1 % (42.0-52.0); HEMOGLOBIN 13.8 g/dl (14.0-17.9); LYMPHOCYTES # (AUTO) 1.5 X10'3 (1.1-4.8); LYMPHOCYTES % (AUTO) 23.9 % (21-51); MEAN CORPUSCULAR HEMOGLOBIN 32.3 PG (27.0-31.0); MEAN CORPUSCULAR HGB CONC 34.5 g/dL (33.0-36.5); MEAN CORPUSCULAR VOLUME 93.5 FL (78-98); MEAN PLATELET VOLUME 7.1 FL (7.4-10.4); MONOCYTES # (AUTO) 0.4 X10'3 (0-0.9); NEUTROPHILS % (AUTO) 63.6 % (42-75); PLATELET COUNT 203 X10'3 (140-440); RED BLOOD COUNT 4.28 X10'6 (4.70-6.10); RED CELL DISTRIBUTION WIDTH 13.6 % (11.5-14.5); WHITE BLOOD COUNT 6.3 X10'3 (4.5-11.0)
[2019-04-10 13:15] VITALS: BP 103/71
== END 2019-04-10 13:30 | disposition home or self-care (01) ==
LOC: SSTAY O 11:05
PROVIDERS: ATTEND Radiology Vascular & Interventional Radiology
DX: T80.219A Unspecified infection due to central venous catheter, initial encounter (principal); I42.0 Dilated cardiomyopathy; I10 Essential (primary) hypertension
CPT/HCPCS: 36415; 36589; 76937; 85025; J2001

== ENCOUNTER 2023-11-15 11:09 | Outpatient (CLI) | payer BC ==
[~2023-11-15 11:09] MED LIST changes: +DOBU250I2 IV
== END 2023-11-15 23:59 | disposition home or self-care (01) ==
LOC: MRI 11:09
PROVIDERS: ATTEND Physical Medicine & Rehabilitation
DX: M50.23 Other cervical disc displacement, cervicothoracic region (principal); M48.03 Spinal stenosis, cervicothoracic region; M47.812 Spondylosis without myelopathy or radiculopathy, cervical region; M43.22 Fusion of spine, cervical region; M25.78 Osteophyte, vertebrae
CPT/HCPCS: 72141